=== PATIENT | female | born 1985 | race Caucasian/White ===

== ENCOUNTER 2020-07-19 10:37 | Outpatient (CLI) | payer MEDICAID | END 2020-07-19 22:11 | disposition home or self-care (01) | LOC: MRD 10:37 | DX: O02.0 Blighted ovum and nonhydatidiform mole (principal); Z3A.10 10 weeks gestation of pregnancy | CPT/HCPCS: 76817 ==

== ENCOUNTER 2020-08-13 11:45 | Inpatient (IN) | payer MEDICAID, SELFPAY ==
[~2020-08-13] VITALS: Ht 152.4 cm; Wt 51.7 kg
[2020-08-13] MEDS ORDERED: ONDANSETRON 4 MG/2 ML VIAL IVP PRN (12:15)
[2020-08-13] MEDS ORDERED: MORPHINE SULFATE 10 MG/ML VIAL IVP PRN (12:30)
[2020-08-13] MEDS ORDERED: LACTATED RINGERS 1,000 ML IV SCH (13:00)
[2020-08-13 13:21] LABS: BASOPHILS % (AUTO) 0.3 % (0.0-2.0); EOSINOPHILS # (AUTO) 0.1 K/uL (0-0.4); HEMOGLOBIN 11.8 g/dL (12.0-16.0); LYMPHOCYTES # (AUTO) 1.2 K/uL (2.5-16.5); MEAN CORPUSCULAR HEMOGLOBIN 30 pg (27-31); MEAN CORPUSCULAR HGB CONC 34 g/dL (33-37); MEAN CORPUSCULAR VOLUME 88.8 fL (80-94); MONOCYTES # (AUTO) 0.5 K/uL (0.8-1.0); MONOCYTES % (AUTO) 6.5 % (1.7-9.3); NEUTROPHILS # (AUTO) 6.4 K/uL (1.8-7.7); NEUTROPHILS % (AUTO) 78.2 % (42.2-75.2); PLATELET COUNT (AUTO) 239 K/uL (140-450); RED BLOOD CELL COUNT(AUTO) 3.94 MIL/uL (4.20-5.40); RED CELL DISTRIBUTION WIDTH 12.7 % (11.6-13.7); WHITE BLOOD COUNT (AUTO) 8.2 K/uL (4.8-10.8)
[2020-08-13 13:29] LABS: BILIRUBIN,URINE NEGATIVE (NEGATIVE); BLOOD, URINE 3+ (NEGATIVE); COLOR,URINE DARK YELLOW (YELLOW); LEUKOCYTE ESTERASE ,URINE 1+ (NEGATIVE); NITRITE, URINE NEGATIVE (NEGATIVE); PH,URINE 5.5 (5.0-9.0); UGLUCOSE NEGATIVE (NEGATIVE)
[2020-08-13 13:55] LABS: APPEARANCE,URINE HAZY (CLEAR); RBC,URINE 11-20 (MOD) /HPF (0-5); WBC,URINE 0-5 /HPF (0-5)
[2020-08-13 14:29] LABS: ANION GAP 14.4 (8-16); CARBON DIOXIDE 23.3 mmol/L (21-32); CREATININE 0.5 mg/dL (0.6-1.3); POTASSIUM 3.7 mmol/L (3.5-5.1); TOTAL BILIRUBIN 0.1 mg/dL (0.0-1.0)
[2020-08-13 16:03] VITALS: BP 111/64
[2020-08-13] MEDS ORDERED: NITR100C7 PO (16:38)
== END 2020-08-13 20:48 | disposition home or self-care (01) | DRG 566 ==
LOC: MFCC 11:45
PROVIDERS: ADMIT Obstetrics & Gynecology; ATTEND Obstetrics & Gynecology
DX: O42.912 Preterm premature rupture of membranes, unspecified as to length of time between rupture and onset of labor, second trimester (principal); O60.02 Preterm labor without delivery, second trimester; O23.592 Infection of other part of genital tract in pregnancy, second trimester; O20.0 Threatened abortion; Z3A.14 14 weeks gestation of pregnancy; B96.89 Other specified bacterial agents as the cause of diseases classified elsewhere; Z20.822 Contact with and (suspected) exposure to COVID-19
CPT/HCPCS: 36415; 76815; 80053; 81001; 85025; 86886; 86900; 86901; 87086; 96361; J7120

== ENCOUNTER 2020-08-15 09:58 | Emergency (ER) | payer MEDICAID, SELFPAY ==
[~2020-08-15] VITALS: Ht 157.5 cm; Wt 51.7 kg
[~2020-08-15 09:58] MED LIST: NITR100C7 PO
[2020-08-15 10:03] VITALS: BP 107/76
--- NOTE | 2020-08-15 10:08 | NUR ---
PT TAKEN TO BED 3 VIA W/C.
--- NOTE | 2020-08-15 10:10 | NUR ---
35 Y/O F BROUGHT INTO THE ER WITH HER D/T MISCARRIAGE D/T LOW AMNIOTIC FLUID AT 14 WEEKS THAT BEGAN 2 DAYS AGO. SHE WAS EVALUATED BY HER OBGYN AND SENT HOME TO ALLOW THE MISCARRIAGE TO RUN ITS COURSE. PT C/C IS 6/10 SHARP LOWER ABD PAIN, N/V X2 EPISODES TODAY, DIZZINESS, SOB. PT IS BLEEDING A PAD AN HOUR, WITH THIN BLOOD AND OCCASIONAL CLOTTING. PT DENIES HAVING BLOOD TRANSFER IN THE PAST, HEMATEMESIS, AND FEVER. [id number] PMH: DENIES NKA RX: CITOLOPRAM
--- NOTE | 2020-08-15 10:30 | NUR ---
AMADEO THAO MADE AWARE THAT PT IS UNABLE TO VOID AT THIS TIME.
[2020-08-15] MEDS ORDERED: ONDANSETRON 4 MG/2 ML VIAL IVP ONE (10:35)
[2020-08-15 10:50] LABS: BASOPHILS % (AUTO) 0.3 % (0.0-2.0); EOSINOPHILS # (AUTO) 0.1 K/uL (0-0.4); HEMATOCRIT 36.6 % (36-48); HEMOGLOBIN 12.4 g/dL (12.0-16.0); LYMPHOCYTES # (AUTO) 0.9 K/uL (2.5-16.5); LYMPHOCYTES % (AUTO) 10.9 % (20.5-51.1); MEAN CORPUSCULAR HEMOGLOBIN 30 pg (27-31); MEAN CORPUSCULAR HGB CONC 34 g/dL (33-37); MEAN CORPUSCULAR VOLUME 89.2 fL (80-94); MONOCYTES # (AUTO) 0.4 K/uL (0.8-1.0); MONOCYTES % (AUTO) 5.3 % (1.7-9.3); NEUTROPHILS # (AUTO) 6.9 K/uL (1.8-7.7); NEUTROPHILS % (AUTO) 82.5 % (42.2-75.2); PLATELET COUNT (AUTO) 244 K/uL (140-450); WHITE BLOOD COUNT (AUTO) 8.4 K/uL (4.8-10.8)
[2020-08-15] MEDS: NACL 0.9% 1,000 ML IV SCH ×3 (11:00→12:24)
[2020-08-15 11:05] LABS: ALBUMIN 3.3 g/dL (3.4-5.0); ANION GAP 13.1 (8-16); CARBON DIOXIDE 24.5 mmol/L (21-32); CREATININE 0.6 mg/dL (0.6-1.3); POTASSIUM 3.6 mmol/L (3.5-5.1); TOTAL BILIRUBIN 0.3 mg/dL (0.0-1.0)
--- NOTE | 2020-08-15 11:16 | NUR ---
US AT BEDSIDE
--- NOTE | 2020-08-15 11:43 | NUR ---
UA COLLECTED AND TAKEN TO LAB
[2020-08-15 11:57] LABS: APPEARANCE,URINE CLEAR (CLEAR); BILIRUBIN,URINE NEGATIVE (NEGATIVE); BLOOD, URINE 3+ (NEGATIVE); COLOR,URINE YELLOW (YELLOW); LEUKOCYTE ESTERASE ,URINE 2+ (NEGATIVE); NITRITE, URINE NEGATIVE (NEGATIVE); UGLUCOSE NEGATIVE (NEGATIVE)
--- NOTE | 2020-08-15 12:13 | NUR ---
EKG AT BEDSIDE
[2020-08-15] MEDS ORDERED: NACL 0.9% 1,000 ML IV SCH (12:15)
[2020-08-15] MEDS ORDERED: MECLIZINE 25 MG TAB PO ONE (12:15)
--- NOTE | 2020-08-15 12:20 | NUR ---
PT C/O DIZZINESS, ER ED NOTIFIED AND PRESCRIBED NORMAL SALINE BOLUS AND MECLIZINE. PT RESTING IN LOWEST POSITION WITH THE BED LOCKED, RAIL X1. WILL CONTINUE TO MONITOR.
[2020-08-15] MEDS ORDERED: HYDROcodone/APAP 5/325 MG 1 TAB TAB PO ONE (13:30)
[2020-08-15] MEDS ORDERED: MECL-303 PO (13:32)
[2020-08-15] MEDS ORDERED: ONDA-24 SL (13:32)
[2020-08-15] MEDS ORDERED: HYDR-5080 PO (13:33)
--- NOTE | 2020-08-15 14:00 | NUR ---
pt asleep in bed, equal chest rise and fall. all pt needs met at this time. bed locked and in lowest position. side rails x1.
[2020-08-15 15:45] VITALS: BP 103/62
--- NOTE | 2020-08-15 15:45 | NUR ---
Patient discharged with v/s stable. Written and verbal after care instructions given and explained. Patient alert, oriented and verbalized understanding of instructions. Ambulatory with steady gait. All questions addressed prior to discharge. ID band removed. Patient advised to follow up with PMD. Rx of norco,meclizine, zofran given. Patient educated on indication of medication including possible reaction and side effects. Opportunity to ask questions provided and answered.
== END 2020-08-15 15:45 | disposition home or self-care (01) ==
LOC: MED 09:58
DX: O03.4 Incomplete spontaneous abortion without complication (principal); O26.892 Other specified pregnancy related conditions, second trimester; R42 Dizziness and giddiness; Z79.899 Other long term (current) drug therapy
CPT/HCPCS: 36415; 76815; 80053; 81001; 83690; 84484; 85025; 86900; 86901; 87086; 93005; 96361; 96374; 99285; J2405; J7030; J8597

== ENCOUNTER 2020-08-20 18:20 | Emergency (ER) | payer MEDICAID ==
[~2020-08-20] VITALS: Ht 157.5 cm; Wt 57.6 kg
[~2020-08-20 18:20] MED LIST changes: +HYDR-5080 PO; +MECL-303 PO; +ONDA-24 SL
[2020-08-20 18:30] VITALS: BP 112/59
--- NOTE | 2020-08-20 18:38 | NUR ---
BIB SELF, DR ROB PATIENT, PT IS 13 WEEKS AND HAVING VAGINAL BLEEDING FOR ABOUT 2 MONTHS. PATIENT SOAKED ONE SUNIL PAD TODAY. DENIES ANY DIZZINESS, PATIENT STATES SHE JUST FEELS TIRED AND IS IS HAVING PELVIC CRAMPING. PER DR ROB, PATIENT HAS RUPTURED MEMBRANES BUT THERE IS A FHT NO [facility]
[2020-08-20] MEDS ORDERED: DOPPLER MC ONE (18:58)
--- NOTE | 2020-08-20 19:03 | NUR ---
heart tones at bedside via doppler; 198 BPM. Patient tolerated well
--- NOTE | 2020-08-20 19:14 | NUR ---
Report given to ELVI Wallace.
[2020-08-20] MEDS ORDERED: NACL 0.9% 1,000 ML IV ONE (19:25)
[2020-08-20] MEDS ORDERED: ONDANSETRON 4 MG/2 ML VIAL IVP ONE (19:25)
--- NOTE | 2020-08-20 19:25 | NUR ---
DRINKING WATER TECHNICIAN AT BEDSIDE DRAWING LABS. UA SAMPLE GIVEN TO [place] DRINKING WATER TECHNICIAN.
--- NOTE | 2020-08-20 19:27 | NUR ---
Ultrasound at bedside.
[2020-08-20 19:51] LABS: BASOPHILS # (AUTO) 0.1 K/uL (0.00-0.22); BASOPHILS % (AUTO) 0.6 % (0.0-2.0); EOSINOPHILS # (AUTO) 0.2 K/uL (0-0.4); EOSINOPHILS % (AUTO) 2.2 % (0.0-4.0); HEMATOCRIT 34.5 % (36-48); HEMOGLOBIN 11.8 g/dL (12.0-16.0); LYMPHOCYTES # (AUTO) 1.5 K/uL (2.5-16.5); LYMPHOCYTES % (AUTO) 18.2 % (20.5-51.1); MEAN CORPUSCULAR HEMOGLOBIN 31 pg (27-31); MEAN CORPUSCULAR HGB CONC 34 g/dL (33-37); MEAN CORPUSCULAR VOLUME 89.8 fL (80-94); MONOCYTES # (AUTO) 0.5 K/uL (0.8-1.0); MONOCYTES % (AUTO) 6.3 % (1.7-9.3); NEUTROPHILS # (AUTO) 6.1 K/uL (1.8-7.7); NEUTROPHILS % (AUTO) 72.7 % (42.2-75.2); PLATELET COUNT (AUTO) 214 K/uL (140-450); RED BLOOD CELL COUNT(AUTO) 3.85 MIL/uL (4.20-5.40); RED CELL DISTRIBUTION WIDTH 13.2 % (11.6-13.7); WHITE BLOOD COUNT (AUTO) 8.3 K/uL (4.8-10.8)
[2020-08-20 20:06] LABS: BILIRUBIN,URINE NEGATIVE (NEGATIVE); BLOOD, URINE 3+ (NEGATIVE); COLOR,URINE RED (YELLOW); LEUKOCYTE ESTERASE ,URINE 3+ (NEGATIVE); NITRITE, URINE NEGATIVE (NEGATIVE); PH,URINE 7.5 (5.0-9.0); UGLUCOSE NEGATIVE (NEGATIVE)
[2020-08-20 20:08] LABS: APPEARANCE,URINE BLOODY (CLEAR)
[2020-08-20 20:09] LABS: RBC,URINE >100 /HPF (0-5); WBC,URINE 16-25 (MOD) /HPF (0-5)
[2020-08-20 20:13] LABS: ALBUMIN 3.1 g/dL (3.4-5.0); ANION GAP 12.9 (8-16); CARBON DIOXIDE 25.1 mmol/L (21-32); CREATININE 0.6 mg/dL (0.6-1.3); TOTAL BILIRUBIN 0.2 mg/dL (0.0-1.0)
--- NOTE | 2020-08-20 20:13 | NUR ---
PATIENT AMBULATED TO RESTROOM WITH STEADY GAIT. PATIENT DENIES PAIN AT THIS TIME. VSS.
[2020-08-20] MEDS ORDERED: cefTRIAXone 1,000 MG VIAL ONE (21:19)
--- NOTE | 2020-08-20 21:25 | NUR ---
Pelvic exam performed by DR. GABRIEL with PRIMARY RN at bedside for entire examination. Patient tolerated procedure WELL. Patient assisted to position of comfort after examination.
--- NOTE | 2020-08-20 21:30 | NUR ---
PATIENT STATES PAIN 5/10 IN LOWER PELVIS. PATIENT DENIES WANTING PAIN MEDICATION AT THIS TIME.
[2020-08-20] MEDS ORDERED: ONDA-24 SL (23:02)
[2020-08-20] MEDS ORDERED: CEPH500C16 PO (23:02)
--- NOTE | 2020-08-20 23:15 | NUR ---
IV removed, catheter intact and site benign. Applied folded 4x4 gauze and tape to stop bleeding.
[2020-08-20 23:20] VITALS: BP 101/56
--- NOTE | 2020-08-20 23:20 | NUR ---
Patient discharged with v/s stable. Written and verbal after care instructions given and explained. Patient alert, oriented and verbalized understanding of instructions. Ambulatory with steady gait. All questions addressed prior to discharge. ID band removed. Patient advised to follow up with PMD. Rx of ZOFRAN, KEFLEX given. Patient educated on indication of medication including possible reaction and side effects. Opportunity to ask questions provided and answered.
--- NOTE | 2020-08-26 09:28 | NUR ---
LATE ENTRY -- NORMAL SALINE INFUSION COMPLETED AT 8500 08/20/20
--- NOTE | 2020-08-26 09:28 | NUR ---
LATE ENTRY -- ROCEPHIN INFUSION COMPLETED AT 2200 08/20/20
== END 2020-08-20 23:20 | disposition home or self-care (01) ==
LOC: MED 18:20
DX: O42.912 Preterm premature rupture of membranes, unspecified as to length of time between rupture and onset of labor, second trimester (principal); O23.42 Unspecified infection of urinary tract in pregnancy, second trimester; O20.8 Other hemorrhage in early pregnancy; Z3A.15 15 weeks gestation of pregnancy; Z79.899 Other long term (current) drug therapy
CPT/HCPCS: 36415; 76815; 80053; 81001; 84702; 85025; 86900; 86901; 87070; 87086; 87210; 96361; 96365; 96375; 99284; J0696; J2405; J7030; J7060

== ENCOUNTER 2020-08-29 19:22 | Emergency (ER) | payer OTHER, SELFPAY ==
[~2020-08-29] VITALS: Ht 157.5 cm; Wt 50.8 kg
[2020-08-29 19:28] VITALS: BP 119/81
--- NOTE | 2020-08-29 19:52 | NUR ---
PT W/C ASSISTED TO BED #3
[2020-08-29] MEDS ORDERED: ONDANSETRON 4 MG/2 ML VIAL IVP ONE (20:25)
[2020-08-29] MEDS ORDERED: NACL 0.9% 1,000 ML IV ONE (20:25)
[2020-08-29 20:40] LABS: BASOPHILS % (AUTO) 0.4 % (0.0-2.0); EOSINOPHILS # (AUTO) 0.2 K/uL (0-0.4); EOSINOPHILS % (AUTO) 2.7 % (0.0-4.0); HEMATOCRIT 31.6 % (36-48); HEMOGLOBIN 10.7 g/dL (12.0-16.0); LYMPHOCYTES # (AUTO) 1.4 K/uL (2.5-16.5); LYMPHOCYTES % (AUTO) 24.9 % (20.5-51.1); MEAN CORPUSCULAR HEMOGLOBIN 31 pg (27-31); MEAN CORPUSCULAR HGB CONC 34 g/dL (33-37); MEAN CORPUSCULAR VOLUME 92.7 fL (80-94); MONOCYTES # (AUTO) 0.4 K/uL (0.8-1.0); MONOCYTES % (AUTO) 6.7 % (1.7-9.3); NEUTROPHILS # (AUTO) 3.6 K/uL (1.8-7.7); NEUTROPHILS % (AUTO) 65.3 % (42.2-75.2); PLATELET COUNT (AUTO) 265 K/uL (140-450); RED BLOOD CELL COUNT(AUTO) 3.41 MIL/uL (4.20-5.40); RED CELL DISTRIBUTION WIDTH 13.3 % (11.6-13.7); WHITE BLOOD COUNT (AUTO) 5.6 K/uL (4.8-10.8)
[2020-08-29 20:55] LABS: ANION GAP 14.4 (8-16); CARBON DIOXIDE 25.2 mmol/L (21-32); CREATININE 0.7 mg/dL (0.6-1.3); POTASSIUM 3.6 mmol/L (3.5-5.1)
[2020-08-29 21:01] LABS: ALBUMIN 2.9 g/dL (3.4-5.0); TOTAL BILIRUBIN 0.2 mg/dL (0.0-1.0)
--- NOTE | 2020-08-29 21:10 | NUR ---
US AT PT BEDSIDE.
[2020-08-29] MEDS ORDERED: ACETAMINOPHEN 325 MG TAB PO ONE (21:20)
--- NOTE | 2020-08-29 21:57 | NUR ---
35 Y/O F BIB SPOUSE FROM HOME, C/O HEAVY VAGINAL BLEEDING WITH ABD PAIN 12/06, STATES SHE SATURATES 4 PADS IN AN HOUR, WITH BLOOD CLOTS FOR A WEEK. C/O NAUSEA, NO VOMTING. 16 WEEKS. EVEN RISE AND FALL OF CHEST, UNLABORED BREATHING, LUNGS CLEAR NILATERALLY. HEART RATE EVEN, STEADY AND NORMAL. PMH: NONE NKA LMP:05/10/20 G2 T1 L1
[2020-08-29] MEDS ORDERED: FERR325E14 PO (23:02)
--- NOTE | 2020-08-29 23:22 | NUR ---
PT REFUSING TO SIGN DISCHARGE PAPERWORK AFTER SPEAKING WITH ERMD. PT REQUESTS TO TALK TO ERMCassandra. ERMCassandra IN ROOM NOW.
--- NOTE | 2020-08-29 23:27 | NUR ---
ERMD IN ROOM AT THIS TIME
[2020-08-30] MEDS ORDERED: IBUP-2213 PO
--- NOTE | 2020-08-30 00:25 | NUR ---
COPY OF VISIT AND CD (SIGNED TWO RN) GIVEN TO PATIENT.
--- NOTE | 2020-08-30 00:25 | NUR ---
Patient discharged with v/s stable. Written and verbal after care instructions given and explained. Patient alert, oriented and verbalized understanding of instructions. Wheel Chair Assisted with to car. All questions addressed prior to discharge. ID band removed. Patient advised to follow up with PMD. Rx of FERROUS SULFATE, IBUPROFEN given. Patient educated on indication of medication including possible reaction and side effects. Opportunity to ask questions provided and answered.
[2020-08-30 00:26] VITALS: BP 119/81
--- NOTE | 2020-09-02 19:46 | NUR ---
LATE ENTRY--- 0.9% NS BOLUS DISCONTINUED AT 2230
== END 2020-08-30 00:26 | disposition home or self-care (01) ==
LOC: MED 19:22
DX: O03.9 Complete or unspecified spontaneous abortion without complication (principal); O99.012 Anemia complicating pregnancy, second trimester; O21.9 Vomiting of pregnancy, unspecified; Z3A.16 16 weeks gestation of pregnancy
CPT/HCPCS: 36415; 76815; 80053; 84702; 85025; 86886; 86900; 86901; 96361; 96374; 99284; J2405; J7030